=== PATIENT | male | born 1950 | race Caucasian/White ===

== ENCOUNTER 2019-12-08 18:47 | Emergency (ER) | payer OTHER, SELFPAY ==
[2019-12-08 18:50] VITALS: BP 147/81; PULSE 87; RESP 18; TEMP 36.3; O2SAT 100
--- NOTE | 2019-12-08 19:30 | ED.SKABFB ---
HPI - Skin/Abscess/Foreign Bdy General Chief complaint: Skin/Abscess/Foreign Body Stated complaint: Rash on Stomach Time Seen by Provider: 12/08/19 19:10 Source: patient and family () Mode of arrival: ambulatory Limitations: no limitations History of Present Illness HPI narrative: Patient is a 69-year-old male who presents with rash to torso. Patient reports cardiac stent placed 4 days ago. He reports he was started on Plavix at this time. He denies skin irritation, urticaria or itching. He denies complaints from the rash, which is concerned because his discharge papers told him to look for rash . Patient denies all other complaints at this time. MD complaint: rash Related Data Home Medications Medication Instructions Recorded Confirmed clopidogrel 12/08/19 12/08/19 isosorbide mononitrate mg PO 12/08/19 lisinopril 12/08/19 pantoprazole PO 12/08/19 rosuvastatin mg 12/08/19 Allergies Allergy/AdvReac Type Severity Reaction Status Date / Time No Known Allergies Allergy Unknown Verified 12/08/19 19:47 Review of Systems Review of Systems: Narrative: CONSTITUTIONAL: Denies fever, chills, or sweats. EYES: Denies visual changes, redness, or discharge. ENT: Denies rhinorrhea, congestion, sore throat, or otalgia. CARDIOVASCULAR: Denies chest pain, palpitations, or edema. RESPIRATORY: Denies cough or dyspnea. GASTROINTESTINAL: Denies abdominal pain, nausea, vomiting, or diarrhea. GENITOURINARY: Denies dysuria or hematuria. SKIN: Rash to abdomen MUSCULOSKELETAL: Denies back pain, joint pain, or myalgia. NEUROLOGIC: Denies headache, numbness, dizziness, or weakness. PSYCHIATRIC: Denies anxiety or depression. [facility] Past Medical History Medical History Arthritis Bronchitis Gallstones GERD (gastroesophageal reflux disease) Hemorrhoids Hiatal hernia HTN (hypertension) Hypercholesterolemia Surgical History Surgical History History of heart artery stent Hx of CABG Hx of tonsillectomy Social History Social History (Updated 12/08/19 @ 19:36 by VERN Antunez) Smoking status: Former smoker Tobacco type: cigarettes Alcohol intake: current Alcohol use details: occasional Substance use: never Living arrangements: with family Exam Narrative: Exam Narrative: GENERAL: Well-appearing, well-nourished, and in no acute distress. HEAD: Normocephalic, atraumatic. EYES: EOMI. No redness or drainage. Conjunctiva are normal. ENT: Mucous membranes pink and moist. CHEST: No respiratory distress. Clear to auscultation. HEART: Regular rate and rhythm. No murmur appreciated. Normal peripheral pulses. GI: Soft, nontender without rebound, or guarding. No distention. Bowel sounds normal in all quadrants. EXTREMITIES: Normal range of motion. SKIN: Morbilliform rash to abdomen. NEURO: No focal deficits. Alert and oriented x3. Gait steady. PSYCH: Normal affect. No signs of depression or anxiety. Course Vital Signs Vital signs: Vital Signs Temperature 36.3 C L 12/08/19 18:50 Pulse Rate 87 12/08/19 18:50 Respiratory Rate 18 12/08/19 18:50 Blood Pressure 147/81 H 12/08/19 18:50 Pulse Oximetry 100 12/08/19 18:50 Temperature 36.3 C L 12/08/19 18:50 Pulse Rate 87 12/08/19 18:50 Respiratory Rate 18 12/08/19 18:50 Blood Pressure 147/81 H 12/08/19 18:50 Pulse Oximetry 100 12/08/19 18:50 MDM - Skin/Abscess/Foreign Bdy MDM Narrative Medical decision making narrative: Discussed with patient most likely cause of this rash is starting to take Plavix. As patient is not uncomfortable from rash, no action needed. 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 Patient and verbalized understanding. Patient is stable for discharge with outpatient follow-up. Differential Diagnosis Differential diagnosis: Likely allergic reaction to
== END 2019-12-08 20:14 | disposition home or self-care (01) ==
PROVIDERS: Emergency Provider Nurse Practitioner; PCP Emergency Medicine
DX: L27.0 Generalized skin eruption due to drugs and medicaments taken internally (principal); T45.525A Adverse effect of antithrombotic drugs, initial encounter; Z95.5 Presence of coronary angioplasty implant and graft; M19.90 Unspecified osteoarthritis, unspecified site; K21.9 Gastro-esophageal reflux disease without esophagitis; I10 Essential (primary) hypertension; E78.00 Pure hypercholesterolemia, unspecified; Z95.1 Presence of aortocoronary bypass graft; I25.10 Atherosclerotic heart disease of native coronary artery without angina pectoris; Z87.891 Personal history of nicotine dependence
CPT/HCPCS: 99281